=== PATIENT | male | born 1965 | race Caucasian/White ===

== ENCOUNTER 2020-01-28 10:50 | Observation (INO) | payer SELFPAY ==
[2020-01-28 12:34] LABS: ABSOLUTE EOSINOPHILS # (AUTO) 0.4 10^3/uL (0.0-0.6); ABSOLUTE LYMPHOCYTES (AUTO) 1.5 10^3/uL (0.5-4.7); ABSOLUTE MONOCYTES (AUTO) 0.6 10^3/uL (0.1-1.4); ABSOLUTE NEUT (AUTO) 7.9 10^3/uL (1.7-8.2); BASOPHILS % (AUTO) 0.4 % (0-2); EOSINOPHILS % (AUTO) 3.9 % (0-6); HEMATOCRIT 44.5 % (37.9-51.0); HEMOGLOBIN 14.9 g/dL (13.5-17.0); LYMPHOCYTES % (AUTO) 14.3 % (13-45); MEAN CORPUSCULAR HEMOGLOBIN 32.7 pg (27.0-33.4); MEAN CORPUSCULAR HGB CONC 33.4 g/dL (32.0-36.0); MEAN CORPUSCULAR VOLUME 98 fl (80-97); MONOCYTES % (AUTO) 5.8 % (3-13); PLATELET COUNT 205 10^3/uL (150-450); RED BLOOD COUNT 4.55 10^6/uL (4.35-5.55); RED CELL DISTRIBUTION WIDTH 14.1 % (11.5-14.0); SEGMENTED NEUTROPHILS % (AUTO) 75.6 % (42-78); TOTAL CELLS COUNTED % (AUTO) 100 %; WHITE BLOOD COUNT 10.5 10^3/uL (4.0-10.5)
[2020-01-28 12:57] LABS: ALBUMIN 4.1 g/dL (3.5-5.0); ALKALINE PHOSPHATASE 82 U/L (38-126); ASPARTATE AMINO TRANSFERASE 38 U/L (17-59); BILIRUBIN,DIRECT 0.1 mg/dL (0.0-0.4); BILIRUBIN,TOTAL 0.5 mg/dL (0.2-1.3); BLOOD UREA NITROGEN 13 mg/dL (7-20); CALCIUM 8.7 mg/dL (8.4-10.2); CARBON DIOXIDE 39 mmol/L (22-30); GLUCOSE 139 mg/dL (75-110); POTASSIUM 4.6 mmol/L (3.6-5.0)
[2020-01-28 13:02] LABS: CHLORIDE 97 mmol/L (98-107)
[2020-01-28 13:04] LABS: ANION GAP 2 (5-19)
[2020-01-28 13:08] LABS: NT PRO BNP 101 pg/mL (<125)
[2020-01-28 13:15] LABS: TROPONIN I < 0.012 ng/mL
--- NOTE | 2020-01-28 14:31 | RADIOLOGY REPORT (SQ) ---
EXAM DESCRIPTION: CTA CHEST IMAGES COMPLETED DATE/TIME: 01/28/2020 2:15 pm REASON FOR STUDY: sob COMPARISON: None. TECHNIQUE: CT scan of the chest performed using helical scanning technique with dynamic intravenous contrast injection. Images reviewed with lung, soft tissue and bone windows. Reconstructed coronal and sagittal MPR images reviewed. Additional 3 dimensional post-processing performed to develop Maximal Intensity Projection images (IA P). All images stored on PACS. All CT scanners at this facility use dose modulation, iterative reconstruction, and/or weight based d osing when appropriate to reduce radiation dose to as low as reasonably achievable (ALARA). [facility]: Dose Right [facility]: CareDose [facility]: Dose Right [facility]: Teradose 4D [facility]: [employer] CONTRAST TYPE AND DOSE: Contrast/concentration: Isovue 350.00 mmol/ml; Total Contrast Delivered: 75. 0 ml; Total Saline Delivered: 63.1 ml Contrast bolus optimized for the pulmonary arteries. RENAL FUNCTION: GFR > 60. RADIATION DOSE: CT Rad equipment meets quality standard of care and radiation dose reduction techniq ues were employed. CTDIvol: 6.6 - 41.8 mGy. DLP: 1467 mGy-cm. LIMITATIONS: None. FINDINGS: LUNGS AND PLEURA: The trachea main bronchi are patent. The patchy opacities in the depend ent portions of the lower lobes are favored to represent atelectasis. There is no consolidation, ple ural effusion or pneumothorax. AORTA AND GREAT VESSELS: No aneurysm or dissection of the thoracic aorta. HEART: Cardiomegaly and mild atherosclerotic calcification of the coronary arteries. There is no per icardial effusion. PULMONARY ARTERIES: The pulmonary artery is dilated and it measures 3.6 cm. There is no pulmonary em bolus. HILAR AND MEDIASTINAL STRUCTURES: No adenopathy or mass. HARDWARE: None in the chest. UPPER ABDOMEN: Hepatic steatosis. THYROID AND OTHER SOFT TISSUES: No adenopathy or mass. BONES: No fracture or osseous lesion. 3D MIPS: Confirm above findings. OTHER: No other findings. IMPRESSION: 1. Cardiomegaly without pulmonary edema. 2. Dilated main pulmonary artery - clinical correlation is recommended to exclude pulmonary hyperten isabel 3. No pulmonary emboli. 4. The patchy opacities in the dependent portions of the lower lobes are favored to represent atelec tasis, however correlation with clinical findings to exclude a pneumonia is recommended. COMMENT: Quality ID # [id number]: Final reports with documentation of one or more dose reduction techniques (e.g., Automated exposure control, adjustment of the mA and/or kV according to patient size, use of iterative reconstruction technique) TECHNICAL DOCUMENTATION: JOB ID: [id number] 2010 [employer]- All Rights Reserved Reading location - IP/workstation name: [email or web address]-
--- NOTE | 2020-01-28 15:08 | ER Document Report ---
ED Extremity Problem, Lower - General Chief Complaint: Leg Pain Stated Complaint: LEFT LEG PAIN,SWELLING Time Seen by Provider: 01/28/20 11:09 Primary Care Provider: KIERRA LÓPEZ PA-C [Primary Care Provider] - Follow up as needed Mode of Arrival: Ambulatory Information source: Patient - HPI Notes: Patient presents with shortness of breath as well as left lower extremity pain and swelling. Patient shortness of breath is been going on for approximately 1 month. And progressively getting worse. He also is been having worsening pain and swelling over the last month. Patient states that shortness of breath is worse with exertion and better with rest. He denies any significant cough or cold symptoms. Patient has had no fever sweats or chills. No vomiting or diarrhea. He denies any previous history of DVTs or PEs. He denies any significant past cardiac history. Patient states he went to see his primary care doctor today for the leg swelling and pain and when he told him that he was short of breath he was referred here to the emergency department. - Related Data Allergies/Adverse Reactions: aspirin Allergy (Verified 01/28/20 12:04) Past Medical History - General Information source: Patient - Social History Smoking Status: Current Every Day Smoker Frequency of alcohol use: None Drug Abuse: None Family History: Reviewed & Not Pertinent Review of Systems - Review of Systems Constitutional: denies: Chills, Fever Cardiovascular: denies: Chest pain, Palpitations Respiratory: Short of breath. denies: Hemoptysis -: Yes All other systems reviewed and negative Physical Exam - Vital signs Vitals: Temp Pulse Resp BP Pulse Ox 99.2 F 96 24 H 135/98 H 87 L 01/28/20 10:58 01/28/20 10:58 01/28/20 10:58 01/28/20 10:58 01/28/20 10:58 Interpretation: Normal - General General appearance: Appears well, Alert - HEENT Head: Normocephalic, Atraumatic Eyes: Normal Pupils: PERRL - Respiratory Respiratory status: No respiratory distress Chest status: Nontender Breath sounds: Decreased air movement Chest palpation: Normal - Cardiovascular Rhythm: Regular Heart sounds: Normal auscultation Murmur: No - Abdominal Inspection: Normal Distension: No distension Bowel sounds: Normal Tenderness: Nontender Organomegaly: No organomegaly - Back Back: Normal, Nontender - Extremities General upper extremity: Normal inspection, Nontender, Normal color, Normal ROM, Normal temperature General lower extremity: Nontender, Edema - left greater than right, Normal color, Normal ROM, Normal temperature. No: Adrian's sign - Neurological Neuro grossly intact: Yes Cognition: Normal Orientation: AAOx4 [place] Coma Scale Eye Opening: Spontaneous Wanda Coma Scale Verbal: Oriented Wanda Coma Scale Motor: Obeys Commands Wanda Coma Scale Total: 15 Speech: Normal Motor strength normal: LUE, RUE, LLE, RLE Sensory: Normal - Psychological Associated symptoms: Normal affect, Normal mood - Skin Skin Temperature: Warm Skin Moisture: Dry Skin Color: Erythema Course - Re-evaluation Re-evalutation: 01/28/20 15:09 Patient presents with leg swelling and shortness of breath. Patient has cardiomegaly and some evidence of pulmonary hypertension however he has no pulmonary edema or evidence of failure. He has no evidence of DVT or PE. He do es have some opacities in the bases the possibly could be infectious although he does not have an elevated white blood cell count or significant infectious symptoms. However patient is definitely hypoxic with an 85% room air saturation. No known Covid exposures. Due to patient's significant hypoxia on room air patient will be admitted to the hospital. - Vital Signs Vital signs: Temp Pulse Resp BP Pulse Ox 99.2 F 96 18 129/68 H 92 01/28/20 10:58 01/28/20 10:58 01/28/20 13:01 01/28/20 13:01 01/28/20 13:01 - Laboratory Result Diagrams: 01/28/20 12:11 01/28/20 12:11 Laboratory results interpreted by me: 01/28/20 01/28/20 12:11 12:11 MCV 98 H RDW 14.1 H Chloride 97 L Carbon Dioxide 39 H Anion Gap 2 L Glucose 139 H ALT 67 H - Diagnostic Test Radiology reviewed: Image reviewed, Reports reviewed - EKG Interpretation by Me EKG shows normal: Sinus rhythm Rate: Normal - 87 Rhythm: NSR [place]/QRS: No: Right axis deviation, Left axis deviation Critical Care Note - Critical Care Note Total time excluding time spent on procedures (mins): 55 Comments: Approximate 55 minutes of critical care time were spent on this hypoxic patient. This time is spent reviewing laboratory values. I spent reviewing imaging. Is spent talking to consultants. He has been doing multiple reassessments. Discharge - Discharge Clinical Impression: Respiratory failure with hypoxia Qualifiers: Chronicity: acute Qualified Code(s): J96.01 - Acute respiratory failure with hypoxia Condition: Serious Disposition: ADMITTED INPATIENT Admitting Provider: Phillip (Hospitalist) Unit Admitted: Telemetry Referrals: KIERRA LÓPEZ PA-C [Primary Care Provider] - Follow up as needed
--- NOTE | 2020-01-28 15:25 | RADIOLOGY REPORT (SQ) ---
EXAM DESCRIPTION: VENOUS UNILATERAL LOWER IMAGES COMPLETED DATE/TIME: 01/28/2020 3:12 pm REASON FOR STUDY: left leg swelling/pain COMPARISON: None. TECHNIQUE: Dynamic and static perez scale and color images acquired of the left leg venous system. Se lected spectral images acquired with additional compression and augmentation maneuvers. The contralat eral common femoral vein and saphenofemoral junction were also imaged. Images stored on PACS. LIMITATIONS: None. FINDINGS: COMMON FEMORAL: Normal phasicity, compression and augmentation. No visualized echogenic ma terial on perez scale. No defects on color images. FEMORAL: Normal compression and augmentation. No visualized echogenic material on perez scale. No defe cts on color images. POPLITEAL: Normal compression, augmentation. No visualized echogenic material on perez scale. No defec ts on color images. CALF VESSELS: Normal compression, augmentation. No visualized echogenic material on perez scale. No de fects on color images. GSV and SSV: Normal compression, augmentation. No visualized echogenic material on perez scale. No def ects on color images. ANY DEEP VENOUS INSUFFICIENCY: Not evaluated. ANY EVIDENCE OF POPLITEAL CYST: No. OTHER: No other findings. CONTRALATERAL COMMON FEMORAL VEIN: Normal phasicity, compression and augmentation. No visualized echogenic material on perez scale. No de fects on color images. IMPRESSION: NO EVIDENCE OF DVT OR SVT IN THE LEFT LEG. TECHNICAL DOCUMENTATION: JOB ID: [id number] 2010 [employer]- All Rights Reserved Reading location - IP/workstation name: [email or web address]
[2020-01-28] MEDS ORDERED: ONDANSETRON HCL INJ/PF 4 MG/2 ML SDV IV PRN (15:51)
[2020-01-28] MEDS ORDERED: ACETAMINOPHEN 650 MG SUPP.RECT PR PRN (15:51)
[2020-01-28] MEDS ORDERED: GLUCAGON,HUMAN RECOMB 1 MG INJ IM PRN (16:38)
[2020-01-28] MEDS ORDERED: DEXTROSE 50%-WATER 25 GM/50 ML DISP.SYRIN IV PRN ×2 (16:38)
[2020-01-28] MEDS ORDERED: DEXTROSE 40% GEL 15 GM TUBE PO PRN ×2 (16:38)
[2020-01-28] MEDS ORDERED: FUROSEMIDE INJ/PF 20 MG/2 ML SDV IV ONE (17:00)
--- NOTE | 2020-01-28 18:13 | PDOC H&P ---
History of Present Illness Admission Date/PCP: 01/28/20 16:15 KIERRA LÓPEZ PA-C Patient complains of: Exertional shortness of breath History of Present Illness: TYLER LAWS is a 54 year old obese gentleman with PMHx diabetes mellitus (Metformin) and HTN (Lisinopril) who was referred by his PCP Kierra López PA-C, for evaluation of possible PE/DVT. Patient reports 1 month history progressively worsening exertional shortness of breath with associated palpitations, orthopnea, PND, and lower extremity swelling. SOB onset with exertion, resolves after 30sec-1 minute rest. Additionally notes x1 month hx disproportionately swollen LLE with associated pain, specifically after standing for long periods of time. Denies hx DVT/PE, recent travel/trauma/surgery. No known sick contacts/exposure, but has been actively working at [employer]. Admits to 40yr smoking history, 1/2 ppd. Upon further questioning denies fever, chills, chest pain, cough, abd pain, nausea, vomiting or diarrhea. Per ED provider pt with O2 sat 80% on initial evaluation. Currently 96% on 2L N C. CBC unremarkable. Chemistries notable for hypercarbia, Cardiac enzymes negative, BNP 101. CT chest concerning for patchy opacitis lower lung schreiber, cardiomegaly, and possible pulmonary hypertension; without pulmonary embolism or effusion. LLE US without DVT. Patient treated with intranasal supplemental oxygen and referred to the hospitalist team for further evaluation, observation and management. Past Medical History Cardiac Medical History: Reports: Hypertension Denies: Atrial Fibrillation, Congestive Heart Failure, Coronary Artery Disease, DVT, Myocardial Infarction, Peripheral Vascular Disease, Pulmonary Embolism Pulmonary Medical History: Denies: Asthma, Bronchitis, Chronic Obstructive Pulmonary Disease (COPD), Re spiratory Failure Neurological Medical History: Denies: Hemorrhagic CVA, Ischemic CVA, Migraine Endocrine Medical History: Reports: Diabetes Mellitus Type 2, Obesity Denies: Hyperthyroidism, Hypothyroidism Renal/ Medical History: Reports: Nephrolithiasis Denies: Chronic Kidney Disease Malignancy Medical History: Reports: None GI Medical History: Denies: Diverticulitis, Gastroesophageal Reflux Disease Musculoskeltal Medical History: Reports: Arthritis Denies: Gout Skin Medical History: Denies: Eczema, Psoriasis Psychiatric Medical History: Reports: Tobacco Dependency Denies: Alcohol Dependency, Depression, General Anxiety Disorder Hematology: Denies: Anemia, Bleeding Tendencies Past Surgical History Past Surgical History: Reports: Appendectomy - 02/26/1983 Social History Information Source: Patient Lives with: Spouse/Significant other Smoking Status: Current Every Day Smoker Cigarettes Packs Per Day: 0.5 Electronic Cigarette use?: No Frequency of Alcohol Use: None Hx Recreational Drug Use: No Hx Prescription Drug Abuse: No - Advance Directive Resuscitation Status: Full Code Family History Family History: DM, Hypertension Parental Family History Reviewed: Yes Children Family History Reviewed: Yes Sibling(s) Family History Reviewed.: Yes Medication/Allergy Home Medications: Gabapentin [Neurontin 100 mg Capsule] 100 mg PO Q12 01/28/20 Lisinopril [Prinivil 10 mg Tablet] 10 mg PO DAILY 01/28/20 Metformin HCl [Metformin HCl ER] 750 mg PO DAILY 01/28/20 Multivit-Min/FA/Lycopen/Lutein [Centrum Silver Men Tablet] 1 each PO DAILY 01/28/20 Tamsulosin HCl [Flomax 0.4 mg Cap.sr] 0.4 mg PO DAILY 01/28/20 Allergies/Adverse Reactions: aspirin Allergy (Verified 01/28/20 12:04) Review of Systems Constitutional: ABSENT: chills, fatigue, fever(s), headache(s), weakness Eyes: ABSENT: visual disturbances Ears: ABSENT: hearing changes Nose, Mouth, and Throat: ABSENT: headache(s), sore throat, vertigo Cardiovascular: PRESENT: dyspnea on exertion, edema, orthropnea, palpitations. ABSENT: chest pain Respiratory: ABSENT: cough, sputum Gastrointestinal: ABSENT: abdominal pain, constipation, diarrhea, nausea, vomiting Genitourinary: PRESENT: difficulty urinating - Secondary to scrotal swelling. ABSENT: dysuria, hematuria Musculoskeletal: PRESENT: back pain - chronic low back pain Integumentary: ABSENT: erythema, rash, wounds Neurological: ABSENT: abnormal speech, confusion, paresthesias, syncope, tremor(s), vertigo Psychiatric: ABSENT: anxiety, depression Endocrine: ABSENT: polydipsia, polyphagia, polyuria Hematologic/Lymphatic: ABSENT: easy bleeding, lymphadenopathy Physical Exam Vital Signs: Temp Pulse Resp BP Pulse Ox 99.2 F 96 17 134/76 H 96 01/28/20 10:58 01/28/20 10:58 01/28/20 16:01 01/28/20 16:01 01/28/20 16:01 Intake & Output 01/27/20 01/28/20 01/29/20 06:59 06:59 06:59 Weight 160 kg General appearance: PRESENT: no acute distress, cooperative, obese Head exam: PRESENT: atraumatic, normocephalic Eye exam: PRESENT: EOMI. ABSENT: scleral icterus Mouth exam: PRESENT: moist, tongue midline Teeth exam: PRESENT: poor dentation Throat exam: ABSENT: post pharyngeal erythema Neck exam: PRESENT: full ROM. ABSENT: carotid bruit, JVD, lymphadenopathy, tenderness, thyromegaly Respiratory exam: PRESENT: crackles - bilateral lower lobes, decreased breath sounds - Difficult to auscultate due to body habitus., symmetrical, unlabored. ABSENT: tachypnea, wheezes Cardiovascular exam: PRESENT: RRR, +S1, +S2. ABSENT: diastolic murmur, systolic murmur Pulses: PRESENT: normal radial pulses, normal dorsalis pedis pul GI/Abdominal exam: PRESENT: normal bowel sounds, soft. ABSENT: distended, firm, tenderness Rectal exam: PRESENT: deferred Gentrourinary exam: PRESENT: erythema - Penile shaft blacnhed white in apperance. Glans penis bright red. There is a There is a yellow crusted lesion just infeior to penis. Without discharge, without warmth, without tenderness.. ABSENT: scrotal swelling Extremities exam: PRESENT: full ROM, pedal edema - Left lower extremity greater in diameter when compared to right lower extremity. Without warmth, redness or TTP. Musculoskeletal exam: PRESENT: ambulatory, full ROM. ABSENT: deformity, dislocation Neurological exam: PRESENT: alert, awake, oriented to person, oriented to place, oriented to time, oriented to situation, CN II-XII grossly intact Psychiatric exam: PRESENT: appropriate affect, normal mood Skin exam: PRESENT: dry, intact, warm Results Laboratory Results: 01/28/20 12:11 01/28/20 12:11 01/28/20 01/28/20 12:11 12:11 WBC 10.5 RBC 4.55 Hgb 14.9 Hct 44.5 MCV 98 H MCH 32.7 MCHC 33.4 RDW 14.1 H Plt Count 205 Seg Neutrophils % 75.6 Sodium 137.7 Potassium 4.6 Chloride 97 L Carbon Dioxide 39 H Anion Gap 2 L BUN 13 Creatinine 0.60 Est GFR ( Amer) > 60 Glucose 139 H Calcium 8.7 Total Bilirubin 0.5 AST 38 Alkaline Phosphatase 82 Total Protein 7.0 Albumin 4.1 01/28/20 12:11 Troponin I < 0.012 NT-Pro-B Natriuret Pep 101 Impressions: Chest/Abdomen CTA 01/28/20 11:20 IMPRESSION: 1. Cardiomegaly without pulmonary edema. 2. Dilated main pulmonary artery - clinical correlation is recommended to exclude pulmonary hypertension 3. No pulmonary emboli. 4. The patchy opacities in the dependent portions of the lower lobes are favored to represent atelectasis, however correlation with clinical findings to exclude a pneumonia is recommended. Venous Doppler Study 01/28/20 11:20 IMPRESSION: NO EVIDENCE OF DVT OR SVT IN THE LEFT LEG. Assessment and Plan - Diagnosis (1) Acute respiratory failure with hypoxia and hypercarbia Is this a current diagnosis for this admission?: Yes Plan: On initial evaluation O2 sat 80% on room air. Currently 96% on 2L NC. CO2 [address]BG [address]. [address] without evidence of pulmonary embolism or effusion. Evidence of bilateral lower lobe opacities and pulmonary HTN. - No evidence of acute infectious process (afebrile, without cough, without leukocytosis) - BC pending - Low suspicion of COVID. - LDH, CRP, ferritin, fibrinogen pending. If elevated consider Covid test. - Hold on abx therapy at this time. Likely secondary to obesity hypoventilation syndrome in combination with undiagnosed obstructive sleep apnea. - OHS and SINAN contributing to suspected pulmonary HTN, leading to right sided heart failure - Additionally demonstrating signs of L-sided heart failure, though bnp 101 and initial EKG without LVH. - Echo pending - Repeat EKG pending - Initiate IV lasix Patient stable. Wean O2 therapy gradually. Monitor O2 sat. (2) Exertional shortness of breath Is this a current diagnosis for this admission?: Yes Plan: With palpitations, without CP. - Without hx CAD. - Given pt's age, gender, and obesity pt is at high risk - Echo pending - Plan for outpatient stress test - Consider cardio consult Treatment otherwise as above (3) Obesity hypoventilation syndrome Is this a current diagnosis for this admission?: Yes Plan: Likely the cause of hypoxia and hypercarbia. - BMI 49 - O2 sat 80% on RA on initial presentation, 98% 2L NC. - O2 sat 85% as per PCP note on 01/26/2020. - CO2 39 on BMP. - VBG pending Without dx SINAN, though likely given weight and hx snoring - Follow up sleep study outpatient setting CT chest with evidence of pulmonary HTN, likely secondary to OHS + SINAN - Echo pending (4) Lower extremity edema Is this a current diagnosis for this admission?: Yes Plan: LLE > RLE. Pitting edema bilaterally. - LLE US without DVT - CT with evidence pulmonary HTN, Echo pending - Initiate lasix IV - Recommend compression stocking 20-30mmHg - Monitor for improvement (5) Lesion of penis Is this a current diagnosis for this admission?: Yes Plan: Reports 2 month history change in penile appearance. Not sexually active. Denies urinary symptoms at this time. Reports burning sensation of skin with moisture. Has treated with Neosporin without noted improvement. - UA with UC pending - Skin swab pending - STI testing pending Resembles lichen sclerosus - Unfortunately no dermatology on campus - Outpatient dermatology follow up (6) Diabetes mellitus type II, non insulin dependent Is this a current diagnosis for this admission?: Yes Plan: Home medication includes Metformin 750mg daily. - Hold home medication - Initiate SSI - Accu-checks - Hem A1c in the morning - Hypoglycemic protocol in place (7) Hypertension Qualifiers: Hypertension type: essential hypertension Qualified Code(s): I10 - Essential (primary) hypertension Is this a current diagnosis for this admission?: Yes Plan: Bp 130/70s. Home medication includes Lisinopril. - Resume home medications - Monitor (8) Obesity, Class III, BMI 40-49.9 (morbid obesity) Is this a current diagnosis for this admission?: Yes Plan: BMI 49.0. - Educated on lifestyle and dietary changes. (9) Tobacco dependence Is this a current diagnosis for this admission?: Yes Plan: 40 year history. Smokes 1/2 ppd. - Provided >3 minutes education and encouragement on smoking cessation. - Nicotine patch provided. - Time Time Spent with patient: 35 or more minutes Smoking Cessation Education: 3 to 10 minutes Medications reviewed and adjusted accordingly: Yes Anticipated Discharge Disposition: Home, Self Care Anticipated Discharge Timeframe: within 24 hours
[2020-01-28] MEDS: ENOXAPARIN SODIUM INJ 30 MG/0.3 ML DISP.SYRIN SUBCUT SCH (18:54)
[2020-01-28] MEDS: NICOTINE 14 MG/24 HR PATCH.TD24 TD SCH (18:54)
--- NOTE | 2020-01-28 19:07 | EKG REPORT ---
SEVERITY:- ABNORMAL ECG - EXCESSIVE ARTIFACT: IMPACTS ASSESSMENT SINUS RHYTHM LEFT POSTERIOR FASCICULAR BLOCK : Confirmed by: Jalen Mckeon MD 28-Jan-2020 19:07:17
--- NOTE | 2020-01-28 19:07 | EKG REPORT ---
SEVERITY:- OTHERWISE NORMAL ECG - SINUS RHYTHM RIGHT AXIS DEVIATION : Confirmed by: Jalen Mckeon MD 28-Jan-2020 19:06:39
[2020-01-28 20:10] LABS: APPEARANCE,URINE CLEAR; BILIRUBIN,URINE NEGATIVE (NEGATIVE); COLOR,URINE YELLOW; GLUCOSE, URINE NEGATIVE (NEGATIVE); KETONES,URINE NEGATIVE (NEGATIVE); LEUKOCYTE ESTERASE,URINE NEGATIVE (NEGATIVE); NITRITE,URINE NEGATIVE (NEGATIVE); PROTEIN,URINE 100 mg/dL (NEGATIVE); URINE SPECIFIC GRAVITY 1.024; UROBILINOGEN,URINE NEGATIVE mg/dL (<2.0)
[2020-01-28 20:14] LABS: VENOUS BLOOD BASE EXCESS 6.3 mmol/L; VENOUS BLOOD HCO3 36.8 mmol/L (20-32); VENOUS BLOOD PH 7.27 (7.30-7.42)
[2020-01-28 20:20] LABS: VENOUS BLOOD PCO2 82.3 mmHg (35-63)
[2020-01-28 20:35] LABS: C-REACTIVE PROTEIN 21.8 mg/L (<10.0)
[2020-01-28 21:07] LABS: FERRITIN 52.9 ng/mL (17.9-464.0)
[2020-01-28] MEDS: INSULIN LISPRO 100 UNIT/ML 3 ML VIAL SUBCUT SCH (21:51)
[2020-01-29 07:15] LABS: HEMATOCRIT 44.2 % (37.9-51.0); HEMOGLOBIN 14.7 g/dL (13.5-17.0); MEAN CORPUSCULAR HGB CONC 33.4 g/dL (32.0-36.0); MEAN CORPUSCULAR VOLUME 99 fl (80-97); PLATELET COUNT 210 10^3/uL (150-450); RED BLOOD COUNT 4.46 10^6/uL (4.35-5.55); RED CELL DISTRIBUTION WIDTH 14.5 % (11.5-14.0); WHITE BLOOD COUNT 11.8 10^3/uL (4.0-10.5)
[2020-01-29 07:17] LABS: VENOUS BLOOD BASE EXCESS 5.7 mmol/L; VENOUS BLOOD HCO3 35.3 mmol/L (20-32); VENOUS BLOOD PH 7.3 (7.30-7.42)
[2020-01-29 07:38] LABS: BLOOD UREA NITROGEN 12 mg/dL (7-20); GLUCOSE 118 mg/dL (75-110); POTASSIUM 4.9 mmol/L (3.6-5.0)
[2020-01-29 07:43] LABS: CARBON DIOXIDE 38 mmol/L (22-30); CHLORIDE 94 mmol/L (98-107)
[2020-01-29 07:52] LABS: FREE T4 (FREE THYROXINE) 0.91 ng/dL (0.78-2.19)
[2020-01-29 07:58] LABS: ANION GAP 4 (5-19)
[2020-01-29] MEDS ORDERED: INFLUENZA QUAD (6MOS+) 2020-21 VAC 0.5 ML SYR IM ONE (08:00)
[2020-01-29 08:06] LABS: THYROID STIMULATING HORMONE 1.32 uIU/mL (0.47-4.68)
[2020-01-29] MEDS: INSULIN LISPRO 100 UNIT/ML 3 ML VIAL SUBCUT SCH ×4 (08:12→21:19)
[2020-01-29] MEDS: METFORMIN HCL 500 MG TABLET PO SCH ×2 (09:18→16:29)
[2020-01-29] MEDS: ENOXAPARIN SODIUM INJ 30 MG/0.3 ML DISP.SYRIN SUBCUT SCH (09:19)
[2020-01-29] MEDS: LISINOPRIL 10 MG TABLET PO SCH (09:19)
[2020-01-29] MEDS: GABAPENTIN 100 MG CAPSULE PO SCH ×2 (09:19→21:22)
[2020-01-29] MEDS: NICOTINE 14 MG/24 HR PATCH.TD24 TD SCH (09:20)
--- NOTE | 2020-01-29 11:43 | PDOC CONSULTATION ---
Consultation Consult Date: 01/29/20 Provider Consulted: ANGELICA DUNN Consult reason:: chronic resp failure History of Present Illness Admission Date/PCP: 01/28/20 16:15 KIERRA LÓPEZ PA-C History of Present Illness: TYLER LAWS is a 54 year old male;Complaint of shortness of breath and swelling in his left lower extremity presented to the emergency room for dyspnea and was found to have SaO2 of 80% and was started on oxygen which improved his SaO2 to 96%. He remains on oxygen at this time and his saturations drop significantly particular when he is asleep. He denies significant cough hemoptysis PPD status unknown no history of chronic lung disease as a child or adolescent he missed to be exposed while smoke as an adult and he is smoked half a pack a day for 50 years. No occupational exposure to potential respiratory toxins. He does admit to snoring and restless sleep nocturia 2-3 times per night unrestful sleep and daytime sounds Past Medical History Cardiac Medical History: Reports: Hypertension Denies: Atrial Fibrillation, Congestive Heart Failure, Coronary Artery Disease, DVT, Myocardial Infarction, Peripheral Vascular Disease, Pulmonary Embolism Pulmonary Medical History: Denies: Asthma, Bronchitis, Chronic Obstructive Pulmonary Disease (COPD), Respiratory Failure Neurological Medical History: Denies: Hemorrhagic CVA, Ischemic CVA, Migraine Endocrine Medical History: Reports: Diabetes Mellitus Type 2, Obesity Denies: Hyperthyroidism, Hypothyroidism Renal/ Medical History: Reports: Nephrolithiasis Denies: Chronic Kidney Disease Malignancy Medical History: Reports: None GI Medical History: Denies: Diverticulitis, Gastroesophageal Reflux Disease Musculoskeltal Medical History: Reports: Arthritis Denies: Gout Skin Medical History: Denies: Eczema, Psoriasis Psychiatric Medical History: Reports: Tobacco Dependency Denies: Alcohol Dependency, Depression, General Anxiety Disorder Hematology: Denies: Anemia, Bleeding Tendencies Past Surgical History Past Surgical History: Reports: Appendectomy - 02/26/1983 Social History Information Source[facility] Lives with: Spouse/Significant other Smoking Status: Current Every Day Smoker Cigarettes Packs Per Day: 0.5 Number of Years Smokin Passive smoke exposure as: Both Frequency of Alcohol Use: None Hx Recreational Drug Use: No Drugs: None Hx Prescription Drug Abuse: No Do you have pets?: No Have you had any respiratory illnesses as a child?: No Have you been exposed to any sick contacts recently?: No Have you travelled outside of [place] in the past 12 months?: No - Advance Directive Resuscitation Status: Full Code Family History Family History: DM, Hypertension Parental Family History Reviewed: No Children Family History Reviewed: No Sibling(s) Family History Reviewed.: No Medication/Allergy Home Medications: Gabapentin [Neurontin 100 mg Capsule] 100 mg PO Q12 01/28/20 Lisinopril [Prinivil 10 mg Tablet] 10 mg PO DAILY 01/28/20 Metformin HCl [Metformin HCl ER] 750 mg PO DAILY 01/28/20 Multivit-Min/FA/Lycopen/Lutein [Centrum Silver Men Tablet] 1 each PO DAILY 01/28/20 Tamsulosin HCl [Flomax 0.4 mg Cap.sr] 0.4 mg PO DAILY 01/28/20 Allergies/Adverse Reactions: aspirin Allergy (Verified 01/28/20 12:04) Physical Exam Vital Signs: Temp Pulse Resp BP Pulse Ox 98.6 F 87 22 H 142/83 H 94 01/29/20 10:00 01/28/20 23:27 01/29/20 08:00 01/29/20 08:00 01/29/20 08:00 Intake & Output 01/28/20 01/29/20 01/30/20 06:59 06:59 06:59 Intake Total 765 Output Total 500 Balance 265 Weight 159.2 kg General appearance: PRESENT: no acute distress, cooperative, disheveled, morbidly obese, well-developed, well-nourished Head exam: PRESENT: atraumatic, normocephalic Eye exam: PRESENT: conjunctiva pale, EOMI. ABSENT: nystagmus, periorbital swelling, scleral icterus Mouth exam: PRESENT: moist, neck supple, tongue midline Neck exam: ABSENT: carotid bruit, full ROM, JVD, lymphadenopathy, meningismus, tenderness, thyromegaly, tracheal deviation, tracheostomy, other Respiratory exam: PRESENT: decreased breath sounds, prolonged expiratory phas, symmetrical, unlabored. ABSENT: rales, retraction, stridor, tachypnea Cardiovascular exam: PRESENT: RRR, +S1, +S2. ABSENT: tachycardia Pulses: PRESENT: normal radial pulses GI/Abdominal exam: PRESENT: soft. ABSENT: guarding, mass, rebound, tenderness Extremities exam: PRESENT: pedal edema. ABSENT: calf tenderness, clubbing, joint swelling, tenderness Musculoskeletal exam: ABSENT: deformity, dislocation, tenderness Neurological exam: PRESENT: alert, awake Psychiatric exam: PRESENT: appropriate affect Skin exam: PRESENT: dry, normal color, warm Results Laboratory Results: 01/29/20 06:57 01/29/20 06:57 01/28/20 01/28/20 01/28/20 12:11 12:11 19:30 WBC 10.5 RBC 4.55 Hgb 14.9 Hct 44.5 MCV 98 H MCH 32.7 MCHC 33.4 RDW 14.1 H Plt Count 205 Seg Neutrophils % 75.6 VBG pH VBG pCO2 VBG HCO3 VBG Base Excess Sodium 137.7 Potassium 4.6 Chloride 97 L Carbon Dioxide 39 H Anion Gap 2 L BUN 13 Creatinine 0.60 Est GFR ( Amer) > 60 Glucose 139 H Calcium 8.7 Magnesium Ferritin Total Bilirubin 0.5 AST 38 Alkaline Phosphatase 82 C-Reactive Protein Total Protein 7.0 Albumin 4.1 TSH Free T4 Urine Color YELLOW Urine Appearance CLEAR Urine pH 5.0 Ur Specific [place] 1.024 Urine Protein 100 H Urine Glucose (UA) NEGATIVE Urine Ketones NEGATIVE Urine Blood NEGATIVE Urine Nitrite NEGATIVE Ur Leukocyte Esterase NEGATIVE Urine WBC (Auto) 2 Urine RBC (Auto) 0 01/28/20 01/28/20 01/29/20 19:41 20:00 06:57 WBC 11.8 H RBC 4.46 Hgb 14.7 Hct 44.2 MCV 99 H MCH 33.0 MCHC 33.4 RDW 14.5 H Plt Count 210 Seg Neutrophils % VBG pH 7.27 L VBG pCO2 82.3 H* VBG HCO3 36.8 H VBG Base Excess 6.3 Sodium Potassium Chloride Carbon Dioxide Anion Gap BUN Creatinine Est GFR ( Amer) Glucose Calcium Magnesium Ferritin 52.90 Total Bilirubin AST Alkaline Phosphatase C-Reactive Protein 21.8 H Total Protein Albumin TSH Free T4 Urine Color Urine Appearance Urine pH Ur Specific [place] Urine Protein Urine Glucose (UA) Urine Ketones Urine Blood Urine Nitrite Ur Leukocyte Esterase Urine WBC (Auto) Urine RBC (Auto) 01/29/20 01/29/20 01/29/20 06:57 06:57 06:57 WBC RBC Hgb Hct MCV MCH MCHC RDW Plt Count Seg Neutrophils % VBG pH 7.30 VBG pCO2 74.0 H* VBG HCO3 35.3 H VBG Base Excess 5.7 Sodium 135.7 L Potassium 4.9 Chloride 94 L Carbon Dioxide 38 H Anion Gap 4 L BUN 12 Creatinine 0.60 Est GFR ( Amer) > 60 Glucose 118 H Calcium 9.0 Magnesium 2.3 Ferritin Total Bilirubin AST Alkaline Phosphatase C-Reactive Protein Total Protein Albumin TSH 1.32 Free T4 0.91 Urine Color Urine Appearance Urine pH Ur Specific [place] Urine Protein Urine Glucose (UA) Urine Ketones Urine Blood Urine Nitrite Ur Leukocyte Esterase Urine WBC (Auto) Urine RBC (Auto) 01/28/20 12:11 Troponin I < 0.012 NT-Pro-B Natriuret Pep 101 Impressions: Chest/Abdomen CTA 01/28/20 11:20 IMPRESSION: 1. Cardiomegaly without pulmonary edema. 2. Dilated main pulmonary artery - clinical correlation is recommended to exclude pulmonary hypertension 3. No pulmonary emboli. 4. The patchy opacities in the dependent portions of the lower lobes are favored to represent atelectasis, however correlation with clinical findings to exclude a pneumonia is recommended. Venous Doppler Study 01/28/20 11:20 IMPRESSION: NO EVIDENCE OF DVT OR SVT IN THE LEFT LEG. Assessment & Plan - Diagnosis (1) Acute respiratory failure with hypoxia and hypercarbia Is this a current diagnosis for this admission?: Yes Plan: Improving (2) Hypertension Qualifiers: Hypertension type: essential hypertension Qualified Code(s): I10 - Essential (primary) hypertension Is this a current diagnosis for this admission?: Yes Plan: Stable at this time (3) Obesity hypoventilation syndrome Is this a current diagnosis for this admission?: Yes Plan: The above patient has failed BiPAP with a patent airway. This patient would benefit from noninvasive mechanical ventilation via the trilogy AVAPS/AE and faster responding AVAPS rates. The trilogy is able to provide a target tidal volume and also adjusting the EPAP pressures to maintain a patent airway as well as an oral backup rate this machine will help improve PaCO2 levels. The severity of the patient's condition will lead to future hospitalizations and readmissions as well as life-threatening situations without the use of this device day and night. Trilogy home vent needed for hypercapnic respiratory martha lure. [facility] or [facility] to follow for trilogy set up. (4) Obesity, Class III, BMI 40-49.9 (morbid obesity) Is this a current diagnosis for this admission?: Yes Plan: Consider bariatric surgery, Dietary consult - Time Time Spent with patient: 50
[2020-01-29 12:52] LABS: ARTERIAL BLOOD BASE EXCESS 9.9 mmol/L; ARTERIAL BLOOD H2CO3 2.09 mmol/L (1.05-1.35); ARTERIAL BLOOD HCO3 38.5 mmol/L (20-24); ARTERIAL BLOOD O2 SATURATION 79.3 % (94-98); ARTERIAL BLOOD PH 7.36 (7.35-7.45); ARTERIAL BLOOD PO2 46.6 mmHg (80-100); ARTERIAL BLOOD TOTAL CO2 40.7 mmol/L (23-27)
[2020-01-29 12:55] LABS: ARTERIAL BLOOD FIO2 ROOM AIR
[2020-01-29 12:56] LABS: ARTERIAL BLOOD PCO2 69.3 mmHg (35-45)
--- NOTE | 2020-01-29 17:27 | PDOC PROGRESS REPORT ---
Subjective Date:: 01/29/20 Subjective:: Patient seen on morning rounds. His oziel Mendoza is at the bedside. BiPAP was initiated by the mushroom packer last night due to to PCO2 on VBG of 82.3. Repeat VBG this morning 74. Patient seen on 2L with O2 sat 92%. Supplemental oxygen removed while in room with notable desaturation to 84% while at rest on room air. Patient overall feels well. Reports decreased swelling in legs. Continues to experience shortness of breath on exertion. No other concerns or complaints today. Discussed with nursing, reported VBG pCO2 values, otherwise no concerns. Reason For Visit: ACUTE RESPIRATORY FAILURE WITH HYPOXIA Physical Exam Vital Signs: Temp Pulse Resp BP Pulse Ox 98.2 F 84 20 134/71 H 92 01/29/20 16:00 01/29/20 16:00 01/29/20 16:00 01/29/20 16:00 01/29/20 16:24 Intake & Output 01/28/20 01/29/20 01/30/20 06:59 06:59 06:59 Intake Total 765 360 Output Total 500 Balance 265 360 Weight 159.2 kg Additional comments: General appearance: PRESENT: no acute distress, cooperative, morbidly obese Head exam: PRESENT: atraumatic, normocephalic Eye exam: PRESENT: EOMI. ABSENT: scleral icterus Mouth exam: PRESENT: moist, tongue midline Teeth exam: PRESENT: poor dentation Throat exam: ABSENT: post pharyngeal erythema Neck exam: PRESENT: full ROM. ABSENT: carotid bruit, JVD, lymphadenopathy, tenderness, thyromegaly Respiratory exam: PRESENT: crackles - bilateral lower lobes, decreased breath sounds - Difficult to auscultate due to body habitus., symmetrical, unlabored. ABSENT: tachypnea, wheezes Cardiovascular exam: PRESENT: RRR, +S1, +S2. ABSENT: diastolic murmur, systolic murmur Pulses: PRESENT: normal radial pulses, normal dorsalis pedis pul GI/Abdominal exam: PRESENT: normal bowel sounds, soft. ABSENT: distended, firm, tenderness Rectal exam: PRESENT: deferred Gentrourinary exam: PRESENT: erythema - Penile shaft blacnhed white in apperance. Glans penis bright red. There is a There is a yellow crusted lesion just infeior to penis. Without discharge, without warmth, without tenderness.. ABSENT: scrotal swelling Extremities exam: PRESENT: full ROM, pedal edema - Left lower extremity greater in diameter when compared to right lower extremity. Without warmth, redness or TTP. Musculoskeletal exam: PRESENT: ambulatory, full ROM. ABSENT: deformity, dislocation Neurological exam: PRESENT: alert, awake, oriented to person, oriented to place, oriented to time, oriented to situation, CN II-XII grossly intact Psychiatric exam: PRESENT: appropriate affect, normal mood Skin exam: PRESENT: dry, intact, warm Results Laboratory Results: 01/29/20 06:57 01/29/20 06:57 01/28/20 01/28/20 01/28/20 19:30 19:41 20:00 WBC RBC Hgb Hct MCV MCH MCHC RDW Plt Count Carbonic Acid HCO3/H2CO3 Ratio ABG pH ABG pCO2 ABG pO2 ABG HCO3 ABG O2 Saturation ABG Base Excess VBG pH 7.27 L VBG pCO2 82.3 H* VBG HCO3 36.8 H VBG Base Excess 6.3 FiO2 Sodium Potassium Chloride Carbon Dioxide Anion Gap BUN Creatinine Est GFR ( Amer) Glucose Calcium Magnesium Ferritin 52.90 C-Reactive Protein 21.8 H TSH Free T4 Urine Color YELLOW Urine Appearance CLEAR Urine pH 5.0 Ur Specific [place] 1.024 Urine Protein 100 H Urine Glucose (UA) NEGATIVE Urine Ketones NEGATIVE Urine Blood NEGATIVE Urine Nitrite NEGATIVE Ur Leukocyte Esterase NEGATIVE Urine WBC (Auto) 2 Urine RBC (Auto) 0 01/29/20 01/29/20 01/29/20 06:57 06:57 06:57 WBC 11.8 H RBC 4.46 Hgb 14.7 Hct 44.2 MCV 99 H MCH 33.0 MCHC 33.4 RDW 14.5 H Plt Count 210 Carbonic Acid HCO3/H2CO3 Ratio ABG pH ABG pCO2 ABG pO2 ABG HCO3 ABG O2 Saturation ABG Base Excess VBG pH VBG pCO2 VBG HCO3 VBG Base Excess FiO2 Sodium 135.7 L Potassium 4.9 Chloride 94 L Carbon Dioxide 38 H Anion Gap 4 L BUN 12 Creatinine 0.60 Est GFR ( Amer) > 60 Glucose 118 H Calcium 9.0 Magnesium 2.3 Ferritin C-Reactive Protein TSH 1.32 Free T4 0.91 Urine Color Urine Appearance Urine pH Ur Specific [place] Urine Protein Urine Glucose (UA) Urine Ketones Urine Blood Urine Nitrite Ur Leukocyte Esterase Urine WBC (Auto) Urine RBC (Auto) 01/29/20 01/29/20 06:57 12:38 WBC RBC Hgb Hct MCV MCH MCHC RDW Plt Count Carbonic Acid 2.09 H HCO3/H2CO3 Ratio 18:1 ABG pH 7.36 ABG pCO2 69.3 H* ABG pO2 46.6 L ABG HCO3 38.5 H ABG O2 Saturation 79.3 L ABG Base Excess 9.9 VBG pH 7.30 VBG pCO2 74.0 H* VBG HCO3 35.3 H VBG Base Excess 5.7 FiO2 ROOM AIR Sodium Potassium Chloride Carbon Dioxide Anion Gap BUN Creatinine Est GFR ( Amer) Glucose Calcium Magnesium Ferritin C-Reactive Protein TSH Free T4 Urine Color Urine Appearance Urine pH Ur Specific [place] Urine Protein Urine Glucose (UA) Urine Ketones Urine Blood Urine Nitrite Ur Leukocyte Esterase Urine WBC (Auto) Urine RBC (Auto) 01/28/20 19:30 Clean Catch Midstream Urine Culture - Final Group C Beta Streptococcus 01/28/20 12:11 Troponin I < 0.012 NT-Pro-B Natriuret Pep 101 Impressions: Chest/Abdomen CTA 01/28/20 11:20 IMPRESSION: 1. Cardiomegaly without pulmonary edema. 2. Dilated main pulmonary artery - clinical correlation is recommended to exclude pulmonary hypertension 3. No pulmonary emboli. 4. The patchy opacities in the dependent portions of the lower lobes are favored to represent atelectasis, however correlation with clinical findings to exclude a pneumonia is recommended. Venous Doppler Study 01/28/20 11:20 IMPRESSION: NO EVIDENCE OF DVT OR SVT IN THE LEFT LEG. Assessment and Plan - Diagnosis (1) Acute respiratory failure with hypoxia and hypercarbia Is this a current diagnosis for this admission?: Yes Plan: On initial evaluation O2 sat 80% on room air. Currently low 90s on 2L NC. CO2 38 on BMP - indicating metabolic alkalosis VBG s/p BiPap initiation pCO2 74.0. CT without evidence of pulmonary embolism or effusion. Evidence of bilateral lower lobe opacities and pulmonary HTN. - No evidence of acute infectious process (afebrile, without cough, without leukocytosis) - BC pending - Low suspicion of COVID. LDH, CRP, ferritin, fibrinogen all WNL. - Cnt to hold abx therapy at this time. Likely secondary to obesity hypoventilation syndrome in combination with undia gnosed obstructive sleep apnea. - OHS and SINAN contributing to suspected pulmonary HTN, leading to right sided heart failure - Additionally demonstrating signs of L-sided heart failure, though bnp 101 and initial EKG without LVH. - Echo pending - Repeat EKG without changes - Treated with IV Lasix, no longer indicated at this time. Pulmonology consulted, case discussed in detail, note reviewed. - Discussed in Dx #3. (2) Exertional shortness of breath Is this a current diagnosis for this admission?: Yes Plan: With palpitations, without CP. - Without hx CAD. - Given pt's age, gender, and obesity pt is at high risk - Echo pending - Plan for outpatient stress test - Consider cardio consult Treatment otherwise as addressed in #1 and #3. (3) Obesity hypoventilation syndrome Is this a current diagnosis for this admission?: Yes Plan: Likely the cause of hypoxia and hypercarbia. - BMI 49 - O2 sat 85% on RA at rest today, currently low 90s on 2L NC. - O2 sat 85% as per PCP note on 01/26/2020. - Patient qualifies for home O2. Organized home O2. Dr. Babb, pulmonology consulted, discussed case, note reviewed in detail. - ABG s/p BiPap x12 hours pCO2 69.3 - Failed BiPap treatment - Recommends noninvasive mechanical ventilation via the trilogy AVAPS/AE patient agreeing - Follow up with Dr. Babb outpatient Patient qualifies for home O2 - O2 saturation at rest on RA 85%. - Organize home O2. (4) Lower extremity edema Is this a current diagnosis for this admission?: Yes Plan: LLE > RLE. Pitting edema bilaterally. - LLE US without DVT - CT with evidence pulmonary HTN, Echo pending -Significant improvement with IV Lasix, no longer indicated at this time. - Recommend compression stocking 20-30mmHg (5) Lesion of penis Is this a current diagnosis for this admission?: Yes Plan: Reports 2 month history change in penile appearance. Not sexually active. Denies urinary symptoms at this time. Reports burning sensation of skin with moisture. Has treated with Neosporin without noted improvement. - UA without signs of infection - UC positive for Group C Beta Strep colony count 50,000-60,000 Etiology unknown DDx" Lichen sclerosis, Zoon's balantitis, Erythroplasia of [place], Maceracted due to urine - Unfortunately no dermatology on campus - Outpatient dermatology follow up , may require biopsy - discussed with patient need to dermatology follow up for appropriate evaluation and treatment he is understanding of this - Set up dermatology follow up at discharge (6) Diabetes mellitus type II, non insulin dependent Is this a current diagnosis for this admission?: Yes Plan: Home medication includes Metformin 750mg daily. - Hold home medication - Initiate SSI - Accu-checks - Hem A1c 6.3 - Hypoglycemic protocol in place (7) Hypertension Qualifiers: Hypertension type: essential hypertension Qualified Code(s): I10 - Essential (primary) hypertension Is this a current diagnosis for this admission?: Yes Plan: Bp 130/70s. Home medication includes Lisinopril. - Resume home medications - Monitor (8) Obesity, Class III, BMI 40-49.9 (morbid obesity) Is this a current diagnosis for this admission?: Yes Plan: BMI 49.0. - Educated on lifestyle and dietary changes. - Candidate for bariatric surgery. (9) Tobacco dependence Is this a current diagnosis for this admission?: Yes Plan: 40 year history. Smokes 1/2 ppd. - Provided >3 minutes education and encouragement on smoking cessation. - Nicotine patch provided. - Time Time Spent with patient: 35 or more minutes Medications reviewed and adjusted accordingly: Yes Anticipated Discharge Disposition: Home, Self Care Anticipated Discharge Timeframe: within 24 hours
[2020-01-30] MEDS: METFORMIN HCL 500 MG TABLET PO SCH (08:20)
[2020-01-30] MEDS: INSULIN LISPRO 100 UNIT/ML 3 ML VIAL SUBCUT SCH ×2 (08:21→11:33)
[2020-01-30] MEDS: LISINOPRIL 10 MG TABLET PO SCH (09:17)
[2020-01-30] MEDS: GABAPENTIN 100 MG CAPSULE PO SCH (09:18)
[2020-01-30] MEDS: ENOXAPARIN SODIUM INJ 30 MG/0.3 ML DISP.SYRIN SUBCUT SCH (09:18)
[2020-01-30] MEDS: NICOTINE 14 MG/24 HR PATCH.TD24 TD SCH (09:20)
[2020-01-30] MEDS ORDERED: MUPIROCIN 2% OINTMENT 22 GM TP SCH (10:00)
[2020-01-30 13:58] VITALS: BP 134/71
--- NOTE | 2020-01-30 19:32 | PDOC DISCHARGE SUMMARY ---
Impression - Admit/DC Date/PCP Admission Date/Primary Care Provider: 01/28/20 16:15 SAI PAYNE PA-C Discharge Date: 01/30/20 - Discharge Diagnosis (1) Acute respiratory failure with hypoxia and hypercarbia Is this a current diagnosis for this admission?: Yes (2) Exertional shortness of breath Is this a current diagnosis for this admission?: Yes (3) Obesity hypoventilation syndrome Is this a current diagnosis for this admission?: Yes (4) Lower extremity edema Is this a current diagnosis for this admission?: Yes (5) Lesion of penis Is this a current diagnosis for this admission?: Yes (6) Diabetes mellitus type II, non insulin dependent Is this a current diagnosis for this admission?: Yes (7) Hypertension Is this a current diagnosis for this admission?: Yes (8) Obesity, Class III, BMI 40-49.9 (morbid obesity) Is this a current diagnosis for this admission?: Yes (9) Tobacco dependence Is this a current diagnosis for this admission?: Yes - Additional Information Resuscitation Status: Full Code Discharge Diet: Cardiac, Diabetic Discharge Activity: Activity As Tolerated Referrals: IRA TRUONG DO [ACTIVE STAFF] - 04/13/20 1:00 pm (Bring picture ID and insurance cards) ANGELICA DUNN MD [ACTIVE STAFF] - 03/01/20 9:00 am SAI PAYNE PA-C [Primary Care Provider] - 02/09/20 10:00 am (Hosp Follow up) Home Medications: Gabapentin [Neurontin 100 mg Capsule] 100 mg PO Q12 01/28/20 Lisinopril [Prinivil 10 mg Tablet] 10 mg PO DAILY 01/28/20 Metformin HCl [Metformin HCl ER] 750 mg PO DAILY 01/28/20 Multivit-Min/FA/Lycopen/Lutein [Centrum Silver Men Tablet] 1 each PO DAILY 01/28/20 Tamsulosin HCl [Flomax 0.4 mg Cap.sr] 0.4 mg PO DAILY 01/28/20 History of Present Illiness History of Present Illness: TYLER LAWS is a 54 year old obese gentleman with PMHx diabetes mellitus (Metformin) and HTN (Lisinopril) who was referred by his PCP Sai Payne PA-C, for evaluation of possible PE/DVT. Patient reports 1 month history progressively worsening exertional shortness of breath with associated palpitations, orthopnea, PND, and lower extremity swelling. SOB onset with exertion, resolves after 30sec-1 minute rest. Additionally notes x1 month hx disproportionately swollen LLE with associated pain, specifically after standing for long periods of time. Denies hx DVT/PE, recent travel/trauma/surgery. No known sick contacts/exposure, but has been actively working at [employer]. Admits to 40yr smoking history, 1/2 ppd. Upon further questioning denies fever, chills, chest pain, cough, abd pain, nausea, vomiting or diarrhea. Per ED provider pt with O2 sat 80% on initial evaluation. Currently 96% on 2L NC. CBC unremarkable. Chemistries notable for hypercarbia, Cardiac enzymes negative, BNP 101. CT chest concerning for patchy opacitis lower lung schreiber, cardiomegaly, and possible pulmonary hypertension; without pulmonary embolism or effusion. LLE US without DVT. Patient treated with intranasal supplemental oxygen and referred to the hospitalist team for further evaluation, observation and management. Hospital Course Hospital Course: Acute respiratory failure with hypoxia and hypercarbia / Obesity hypoventilation syndrome / Exertional SOB On initial evaluation O2 sat 80% on room air. Currently low 90s on 2L NC. CO2 38 on BMP - indicating metabolic alkalosis VBG s/p BiPap initiation pCO2 74.0. CT without evidence of pulmonary embolism or effusion. Evidence of bilateral lower lobe opacities and pulmonary HTN. Likely secondary to obesity hypoventilation syndrome in combination with undiagnosed obstructive sleep apnea. - OHS and SINAN contributing to suspected pulmonary HTN, leading to right sided heart failure - Echo was not read at time of disposition, pt without edema, continued lasix po not indicated - Repeat EKG without changes Dr. Dunn, pulmonology consulted, discussed case, note reviewed in detail; recommends trilogy AVAPS/AE. - Pt without insurance, unwilling to pay - O2 sat 85% on RA at rest today, currently low 90s on 2L NC. - O2 sat 85% as per PCP note on 01/26/2020. - Patient qualifies for home O2. Organized home O2. - F/u with Dr. Dunn in new year for Trilogy Lower Extremity edema: DVT ruled out. - Improved with single dose IV lasix. - No further treatment indicated Lesion of penis Reports 2 month history change in penile appearance. Not sexually active. Denies urinary symptoms at this time. Reports burning sensation of skin with moisture. Has treated with Neosporin without noted improvement. - UA without signs of infection - UC positive for Group C Beta Strep colony count 50,000-60,000 (Not infectious) Etiology unknown DDx: Lichen sclerosis, Zoon's balantitis, Erythroplasia of [place], Maceracted due to urine - Unfortunately no dermatology on campus - Outpatient dermatology follow up , may require biopsy - discussed with patient need to dermatology follow up for appropriate evaluation and treatment he is understanding of this - Set up dermatology follow up at discharge Diabetes mellitus type II, non insulin dependent Home medication includes Metformin 750mg daily. - Hem A1c 6.3 - Chronometer Assembler And Adjuster consulted Obesity, Class III, BMI 40-49.9 (morbid obesity) BMI 49.0. - Educated on lifestyle and dietary changes. - Candidate for bariatric surgery. - Dietitian consulted Physical Exam Vital Signs: Temp Pulse Resp BP Pulse Ox 98.0 F 84 20 134/71 H 96 01/30/20 13:52 01/30/20 13:52 01/30/20 13:52 01/30/20 13:52 01/30/20 13:52 Intake & Output 01/29/20 01/30/20 01/31/20 06:59 06:59 06:59 Intake Total 765 1520 475 Output Total 500 Balance 265 1520 475 Weight 159.2 kg 157.9 kg 157.9 kg Additional comments: General appearance: PRESENT: no acute distress, cooperative, morbidly obese Head exam: PRESENT: atraumatic, normocephalic Eye exam: PRESENT: EOMI. ABSENT: scleral icterus Mouth exam: PRESENT: moist, tongue midline Neck exam: PRESENT: full ROM. ABSENT: carotid bruit, JVD, lymphadenopathy, tenderness, thyromegaly Respiratory exam: PRESENT: crackles - bilateral lower lobes, decreased breath sounds - Difficult to auscultate due to body habitus., symmetrical, unlabored. ABSENT: tachypnea, wheezes Cardiovascular exam: PRESENT: RRR, +S1, +S2. ABSENT: diastolic murmur, systolic murmur Pulses: PRESENT: normal radial pulses, normal dorsalis pedis pul GI/Abdominal exam: PRESENT: normal bowel sounds, soft. ABSENT: distended, firm, tenderness Rectal exam: PRESENT: deferred Extremities exam: PRESENT: full ROM, previously noted edema resolved Musculoskeletal exam: PRESENT: ambulatory, full ROM. ABSENT: deformity, dislocation Neurological exam: PRESENT: alert, awake, oriented to person, oriented to place, oriented to time, oriented to situation, CN II-XII grossly intact Psychiatric exam: PRESENT: appropriate affect, normal mood Skin exam: PRESENT: dry, intact, warm Results Laboratory Results: WBC 11.8 10^3/uL (4.0-10.5) H 01/29/20 06:57 RBC 4.46 10^6/uL (4.35-5.55) 01/29/20 06:57 Hgb 14.7 g/dL (13.5-17.0) 01/29/20 06:57 Hct 44.2 % (37.9-51.0) 01/29/20 06:57 MCV 99 fl (80-97) H 01/29/20 06:57 MCH 33.0 pg (27.0-33.4) 01/29/20 06:57 MCHC 33.4 g/dL (32.0-36.0) 01/29/20 06:57 RDW 14.5 % (11.5-14.0) H 01/29/20 06:57 Plt Count 210 10^3/uL (150-450) 01/29/20 06:57 Lymph % (Auto) 14.3 % (13-45) 01/28/20 12:11 [place] % (Auto) 5.8 % (3-13) 01/28/20 12:11 Eos % (Auto) 3.9 % (0-6) 01/28/20 12:11 Baso % (Auto) 0.4 % (0-2) 01/28/20 12:11 Absolute Neuts (auto) 7.9 10^3/uL (1.7-8.2) 01/28/20 12:11 Absolute Lymphs (auto) 1.5 10^3/uL (0.5-4.7) 01/28/20 12:11 Absolute Monos (auto) 0.6 10^3/uL (0.1-1.4) 01/28/20 12:11 Absolute Eos (auto) 0.4 10^3/uL (0.0-0.6) 01/28/20 12:11 Absolute Basos (auto) 0.0 10^3/uL (0.0-0.2) 01/28/20 12:11 Seg Neutrophils % 75.6 % (42-78) 01/28/20 12:11 Fibrinogen 493 mg/dL (209-497) 01/28/20 20:00 Carbonic Acid 2.09 mmol/L (1.05-1.35) H 01/29/20 12:38 HCO3/H2CO3 Ratio 18:1 01/29/20 12:38 ABG pH 7.36 (7.35-7.45) 01/29/20 12:38 ABG pCO2 69.3 mmHg (35-45) H* 01/29/20 12:38 ABG pO2 46.6 mmHg (80-100) L 01/29/20 12:38 ABG HCO3 38.5 mmol/L (20-24) H 01/29/20 12:38 ABG Total CO2 40.7 mmol/L (23-27) H 01/29/20 12:38 ABG O2 Saturation 79.3 % (94-98) L 01/29/20 12:38 ABG Base Excess 9.9 mmol/L 01/29/20 12:38 VBG pH 7.30 (7.30-7.42) 01/29/20 06:57 VBG pCO2 74.0 mmHg (35-63) H* 01/29/20 06:57 VBG HCO3 35.3 mmol/L (20-32) H 01/29/20 06:57 VBG Base Excess 5.7 mmol/L 01/29/20 06:57 FiO2 ROOM AIR 01/29/20 12:38 Sodium 135.7 mmol/L (137-145) L 01/29/20 06:57 Potassium 4.9 mmol/L (3.6-5.0) 01/29/20 06:57 Chloride 94 mmol/L (98-107) L 01/29/20 06:57 Carbon Dioxide 38 mmol/L (22-30) H 01/29/20 06:57 Anion Gap 4 (5-19) L 01/29/20 06:57 BUN 12 mg/dL (7-20) 01/29/20 06:57 Creatinine 0.60 mg/dL (0.52-1.25) 01/29/20 06:57 Est GFR ( Amer) > 60 (>60) 01/29/20 06:57 Est GFR (MDRD) Non-Af > 60 (>60) 01/29/20 06:57 Glucose 118 mg/dL (75-110) H 01/29/20 06:57 POC Glucose 119 mg/dL (70-110) H 01/30/20 11:18 Hemoglobin A1c % 6.3 % (4.7-6.0) H 01/29/20 06:57 Calcium 9.0 mg/dL (8.4-10.2) 01/29/20 06:57 Magnesium 2.3 mg/dL (1.6-2.3) 01/29/20 06:57 Ferritin 52.90 ng/mL (17.9-464.0) 01/28/20 20:00 Total Bilirubin 0.5 mg/dL (0.2-1.3) 01/28/20 12:11 Direct Bilirubin 0.1 mg/dL (0.0-0.4) 01/28/20 12:11 Neonat Total Bilirubin Not Reportable 01/28/20 12:11 Neonat Direct Bilirubin Not Reportable 01/28/20 12:11 Neonat Indirect Bili Not Reportable 01/28/20 12:11 AST 38 U/L (17-59) 01/28/20 12:11 ALT 67 U/L (<50) H 01/28/20 12:11 Alkaline Phosphatase 82 U/L (38-126) 01/28/20 12:11 Lactate Dehydrogenase 223 U/L (120-246) 01/28/20 20:00 Troponin I < 0.012 ng/mL 01/28/20 12:11 C-Reactive Protein 21.8 mg/L (<10.0) H 01/28/20 20:00 NT-Pro-B Natriuret Pep 101 pg/mL (<125) 01/28/20 12:11 Total Protein 7.0 g/dL (6.3-8.2) 01/28/20 12:11 Albumin 4.1 g/dL (3.5-5.0) 01/28/20 12:11 TSH 1.32 uIU/mL (0.47-4.68) 01/29/20 06:57 Free T4 0.91 ng/dL (0.78-2.19) 01/29/20 06:57 Urine Color YELLOW 01/28/20 19:30 Urine Appearance CLEAR 01/28/20 19:30 Urine pH 5.0 (5.0-9.0) 01/28/20 19:30 Ur Specific Ollie 1.024 01/28/20 19:30 Urine Protein 100 mg/dL (NEGATIVE) H 01/28/20 19:30 Urine Glucose (UA) NEGATIVE mg/dL (NEGATIVE) 01/28/20 19:30 Urine Ketones NEGATIVE mg/dL (NEGATIVE) 01/28/20 19:30 Urine Blood NEGATIVE (NEGATIVE) 01/28/20 19:30 Urine Nitrite NEGATIVE (NEGATIVE) 01/28/20 19:30 Urine Bilirubin NEGATIVE (NEGATIVE) 01/28/20 19: Urine Urobilinogen NEGATIVE mg/dL (<2.0) 01/28/20 19:30 Ur Leukocyte Esterase NEGATIVE (NEGATIVE) 01/28/20 19:30 Urine WBC (Auto) 2 /HPF 01/28/20 19:30 Urine RBC (Auto) 0 /HPF 01/28/20 19:30 Urine Bacteria (Auto) TRACE /HPF 01/28/20 19:30 Squamous Epi Cells Auto 1 /HPF 01/28/20 19:30 Urine Mucus (Auto) RARE /LPF 01/28/20 19:30 Urine Ascorbic Acid NEGATIVE (NEGATIVE) 01/28/20 19:30 01/28/20 12:11 Troponin I < 0.012 NT-Pro-B Natriuret Pep 101 Impressions: Chest/Abdomen CTA 01/28/20 11:20 IMPRESSION: 1. Cardiomegaly without pulmonary edema. 2. Dilated main pulmonary artery - clinical correlation is recommended to exclude pulmonary hypertension 3. No pulmonary emboli. 4. The patchy opacities in the dependent portions of the lower lobes are favored to represent atelectasis, however correlation with clinical findings to exclude a pneumonia is recommended. Venous Doppler Study 01/28/20 11:20 IMPRESSION: NO EVIDENCE OF DVT OR SVT IN THE LEFT LEG. Plan Plan of Treatment: (1). Your oxygen saturation, with amount of oxygen in your blood, was found to be low. This we are giving you home oxygen that you are to use daily. Additionally you were seen by the market investigator, a lung doctor, who recommended trilogy unfortunately you have no insurance at this time, thus we are giving you home oxygen! -Follow-up with market investigator, Dr. Dunn in the new year when you have insurance. We have set this up for you. (2). Your difficulty with breathing was from your weight recommend dietary and lifestyle changes including portion control of your food and 30 minutes of physical activity daily. (3). For the changes of your penis I have given you mupirocin which is a topical ointment please apply this to your penis twice daily. Strongly suggest following up with a drain tiler for further evaluation and treatment. Goals: F/u with PCP, pulmonology and dermatology. Time Spent: Greater than 30 Minutes Stroke Is this a Stroke Patient?: No Acute Heart Failure Is this a Heart Failure Patient?: No
--- NOTE | 2020-01-31 08:14 | XCELERA REPORT ---
[address] [address] Transthoracic Echocardiogram Report Name: TYLER LAWS Age: 54 yrs Gender: Male : 1965 Patient Status: Inpatient Patient Location: [address] [place] [address] Study Date: 01/28/2020 06:21 PM Height: 71 in Weight: 352 lb BSA: 2.7 m2 Procedure: A complete two-dimensional transthoracic echocardiogram was performed (2D, M-mode, spectral and color flow Doppler). The study was technically limited with all images being suboptimal in quality. Images from the parasternal window were difficult to obtain and are suboptimal in quality. The apical views were difficult to obtain and are suboptimal in quality. The suprasternal notch views were difficult to obtain and are suboptimal in quality. Reason For Study: Exertional SOB Ordering Physician: STEFFANY LOOMIS Performed By: Mansi Phillips Interpretation Summary The left ventricle is grossly normal size. There is mild concentric left ventricular hypertrophy. Left ventricular systolic function is normal. The Ejection Fraction estimate is 55-60%. Doppler measurements suggest normal left ventricular diastolic function. Regional wall motion abnormalities cannot be excluded due to limited visualization. Interventricular septum was not well visualized. Cannot comment on TR due to poor visualization and and Doppler interrogation of the vlave. Trace MR. No prior studies for comparison. MMode/2D Measurements & Calculations RVDd: 3.6 cm LVIDd: 5.4 cm FS: 31.0 % Ao root diam: IVSd: 1.3 cm LVIDs: 3.8 cm EDV(Teich): 3.4 cm 143.9 ml Ao root area: LVPWd: 1.3 cm ESV(Teich): 8.9 cm2 60.3 ml LA dimension: EF(Teich): 58.1 % 4.0 cm LVLd ap4: 8.1 cm SV(MOD-sp4): EDV(MOD-sp4): 121.0 ml 182.0 ml LVLs ap4: 6.2 cm ESV(MOD-sp4): 61.0 ml EF(MOD-sp4): 66.5 % Doppler Measurements & Calculations MV E max ari: MV P1/2t max ari: Ao V2 max: LV V1 max P.7 cm/sec 123.7 cm/sec 137.6 cm/sec 7.1 mmHg MV A max ari: MV P1/2t: 78.1 msec Ao max PG: LV V1 max: 76.4 cm/sec MVA(P1/2t): 2.8 cm2 7.6 mmHg 133.3 cm/sec MV E/A: 1.3 MV dec slope: 463.8 cm/sec2 MV dec time: 0.26 sec PA V2 max: MV P1/2t-pr_phl: 75.2 cm/sec 78.1 msec PA max P.3 mmHg Left Ventricle The left ventricle is grossly normal size. There is mild concentric left ventricular hypertrophy. Left ventricular systolic function is normal. The Ejection Fraction estimate is 55-60%. Doppler measurements suggest normal left ventricular diastolic function. Regional wall motion abnormalities cannot be excluded due to limited visualization. Right Ventricle Borderline right ventricular enlargement. The right ventricular systolic function is borderline reduced. Atria The right atrium is normal. The left atrium is mildly dilated. Interventricular septum was not well visualized. Mitral Valve The mitral valve is grossly normal. There is no evidence of mitral valve prolapse. There is a trace amount of mitral regurgitation. Aortic Valve The aortic valve is mildly calcified. The aortic valve is not well visualized secondary to technical limitations. There is no aortic valve stenosis. No aortic regurgitation is present. Tricuspid Valve The tricuspid valve is not well visualized secondary to technical limitations. There is no tricuspid stenosis. Cannot comment on TR due to poor visualization and and Doppler interrogation of the vlave. Pulmonic Valve The pulmonic valve is not well visualized. There is no pulmonic valvular stenosis. There is no pulmonic valvular regurgitation. Effusions There is no pericardial effusion. There is no pleural effusion. : STEFFANY LOOMIS Antonio
== END 2020-01-30 14:50 | disposition home or self-care (01) ==
LOC: ER 10:50 → INTOOBSV 16:15 → EH 16:15 → 5 17:05
PROVIDERS: ADMIT Hospitalist; ATTEND Physician Assistant
DX: J96.02 Acute respiratory failure with hypercapnia (principal); J96.01 Acute respiratory failure with hypoxia; E66.2 Morbid (severe) obesity with alveolar hypoventilation; Z68.42 Body mass index [BMI] 45.0-49.9, adult; R60.0 Localized edema; L98.8 Other specified disorders of the skin and subcutaneous tissue; E11.9 Type 2 diabetes mellitus without complications; I10 Essential (primary) hypertension; F17.210 Nicotine dependence, cigarettes, uncomplicated; Z79.899 Other long term (current) drug therapy; Z79.84 Long term (current) use of oral hypoglycemic drugs
CPT/HCPCS: 93005 ×2; 99285; 36415 ×2; 87040; 87086; 84439; 82962 ×3; 82803 ×3; 82728; 83615; 83735; 84443; 85025; 85027; 85384; 86140; 87088; 80048; 80053; 81001; 84484; 83036; 83880; 93306; 93971; 71275; 93010; 36600; 94660 ×3; G0378 ×4; J1940; J1815; J1650 ×3; J3490